=== PATIENT | female | born 1955 | race Caucasian/White ===

== ENCOUNTER → 2017-09-15 | Outpatient (CLI) | payer OTHER, BC ==
[~2017-09-15] MED LIST: ATOR20TA22 PO; CHLO12TA PO; CHOL500045 PO; CYCL-332 PO; DOXY150T6 PO; ESTR2TAB26 PO; FLUO40CA70 PO; HYDR-2966 PO; LEVO100T95 PO; LEVO50TA80 PO; LIOT5TAB12 PO; MELO-149 PO; METR45CR9 TP; METXR500 PO; PHEN10TA PO; POTA-53 PO; SULF-198 PO; VALS1TAB96 PO; ZOLP-350 PO
[2017-09-15 09:57] LABS: PLATELET COUNT, AUTOMATED 333 K/uL (150-450)
--- NOTE | 2017-09-15 10:42 | RADIOLOGY IMAGING REPORT ---
FACILITY: [facility] - [place] PATIENT NAME: Nanci Jack : 1955 MR: [id number] V: [id number] EXAM DATE: ORDERING PHYSICIAN: KRZYSZTOF TINSLEY TECHNOLOGIST: Location: [facility] - [place] Patient: Nanci Jack : 1955 Visit/Account:[id number] Date of Sevice: 09/15/2017 Technique: CHEST PA AND LAT HISTORY: Pneumonia, cough Comparison studies: None FINDINGS: No lobar airspace consolidation. No pleural effusion. The cardiac silhouette is unremarka ble. IMPRESSION: 1. No acute cardiopulmonary process. Report Dictated By: Kush Thomas DO at 09/15/2017 10:36 AM Report E-Signed By: Kush Thomas DO at 09/15/2017 10:38 AM WSN:[id number]
== END ==
LOC: RAD 09:26
PROVIDERS: ATTEND Nurse Practitioner Family
DX: J41.1 Mucopurulent chronic bronchitis (principal)
CPT/HCPCS: 36415; 71046; 82040; 82247; 82310; 82374; 82435; 82565; 82947; 84075; 84132; 84155; 84295; 84450; 84460; 84520; 85025; 85379

== ENCOUNTER → 2018-01-29 | Outpatient (CLI) | payer OTHER, BC ==
--- NOTE | 2018-02-02 10:48 | RADIOLOGY IMAGING REPORT ---
FACILITY: [facility] PATIENT NAME: MOSES JUNG : [id number] MR: [id number] V: [id number] EXAM DATE: [id number] ORDERING PHYSICIAN: KRZYSZTOF TINSLEY TECHNOLOGIST: Komal Yousif PROCEDURE:BILATERAL DIGITAL SCREENING MAMMOGRAM WITH CAD ASSISTED INTERPRETATION & 3D TOMOSYNTHESIS COMPARISON:Prior mammograms 01/04/14, 11/10/12, 11/04/12. INDICATIONS:screening FINDINGS: Moderately dense fibroglandular tissue is seen throughout the breasts. The parenchymal pattern has remained stable allowing for difference in mammographic technique & patient positioning. There is no evidence of malignant appearing mass, malignant appearing calcifications or other secondary sign of malignancy in either breast. DIAGNOSTIC CATEGORY 1--NEGATIVE. RECOMMENDATIONS: ROUTINE MAMMOGRAM AND CLINICAL EVALUATION. IMPRESSION: BIRADS 1: Negative. No significant abnormality is seen. Dictated by: Eli Almendarez M.D. on 02/01/2018 at 17:17 Transcribed by: MELISSA on 02/02/2018 at 7:59 Approved by: Eli Almendarez M.D. on 02/02/2018 at 10:47 [facility]
== END ==
LOC: MAMO 02:09
PROVIDERS: ATTEND Nurse Practitioner Family
DX: Z12.31 Encounter for screening mammogram for malignant neoplasm of breast (principal); E87.6 Hypokalemia
CPT/HCPCS: 36415; 77063; 77067; 82040; 82247; 82310; 82374; 82435; 82565; 82947; 84075; 84132; 84155; 84295; 84450; 84460; 84520

== ENCOUNTER 2018-11-10 13:00 | Outpatient (RCR) | payer MEDICARE, BC ==
--- NOTE | 2018-10-27 18:21 | PT INITIAL EVALUATION ---
MEDICAL DIAGNOSIS: Gluteal tendinitis, left hip (M76.02) TREATMENT DIAGNOSIS: Same, L SI pain, L hip flexor tendinitis DATE OF ONSET: 10/27/17 SUBJECTIVE: Nanci Jack presents to PT for acute on chronic (1 year) L gluteal tendinitis, flared two months ago for unknown reasons. She states her L posterior and lateral hip pain has flared with R anterior hip pain with hip flexion, stair use, ambulation to the point she isn't walking for exercise, uses stairs in a non-reciprocating pattern and abducts her L LE with car transfers. She rates L hip pain with hip flexion as 8/10, 2/10 at rest. REHAB PROBLEM LIST: Increased Pain, Impaired Transfers, Decreased ROM, Strength, Function, Mobility, and Altered Gait PREVIOUS MEDICAL HISTORY: R ADONIS, 2 bladder surgeries, DM rosacea, HTN, hypercholesteremia OCCUPATION: Retired, lives with her in a multi-story home. OBJECTIVE: Posture: L anterior and R posterior ilium, hip flexed 20 degrees, apparent long L LE. ROM: L hip PROM flexion 90 deg., anterior hip pain, abduction 40 deg., extension -5 degrees from neutral, IR 15 deg, ER 30 degrees. Lumbar flexion 75%, extension 50%, facet pain. SI AROM with sluggish l ilium posterior rotation. Strength: L hip abd. 3+/5, pain limited, B obturator internus 3+/5, L hip flexors 3+/5, pain limited. Palpation: Painful L G. medius, G. max tendon, TFL/IT band and greater trochanter (boggy at the trochanter). L anterior hip is painful, especially lesser trochanter. Special Tests: Positive Ye test B. L hip scour, PADMINI 40%, both limited by anterior hip pain. Mobility: Difficulty sit/supine due to L anterior hip pain. Gait: Apparent long L LE, leans R in L stance and L vaulting at mid-stance. ASSESSMENT: Nanci Jack presents with L hip tendinitis, SI dysfunction putting pressure on the L hip flexors, limiting L hip flexion activities. She did well with gentle ilium mobilization and is started with isometric core stabilization exercises. She had less apparent long L LE and no vaulting in gait after session. Short Term Goals One month: Nanci abductors her L hip in car transfers, walks 2-3 blocks with hip pain 2-3/10, uses stairs with a reciprocating gait. Patient's Goals Use stairs normally, walk outdoors, car transfers without a stiff L LE. PLAN: Patient to be seen for Manual Therapy, Strengthening/condition, Ice/Heat, Range of Motion, Spinal Stabilization Stretching, Neuromuscular Re-ed, Electrical Stim, Posture/Body mechanics, Home Exercise Program for 2x/Week for 4 Weeks Thank you for this referral. If you have any questions, comments, or concerns about this report or plan, please contact me at . Ruddy Dennis PA-C date [facility]
--- NOTE | 2018-11-10 15:11 | PT PLAN OF CARE ---
Physician: Dr. Casey Dennis Patient is being seen: 2x/week Therapist: Monserrat Cat, PT Medical Diagnosis: Gluteal tendinitis, left hip (M76.02) Treatment Diagnosis: Same, L SI pain, L hip flexor tendinitis Date of Onset: 10/27/17 Date of Initial Evaluation: 10/27/18 Date patient was last seen: 11/10/18 Number of treatments: 6 Number of cancellations/No shows: 0 INTERVENTIONS: L hip Therapeutic Exercise, , Manual Therapy, Heat, Electrical Stim GOALS: One month: Nanci abducts her L hip in car transfers, walks 2-3 blocks with hip pain 2-3/10, uses stairs with a reciprocating gait. all not met PATIENT'S GOAL: Use stairs normally, walk outdoors, car transfers without a stiff L LE. all not met Patient Compliance: Excellent Prognosis: Excellent Reasons for discontinuing therapy: S: Nanci continues to reports L anterior hip pain 7/10 with stair use, 5/10 with car transfers. She has only tolerated light L hip ROM, isometric exercise. Posture: Even ASIS. ROM: L hip PROM flexion 100 deg., anterior hip pain, abduction 40 deg., extension 15 degrees. Lumbar flexion WNL, extension 50%, facet pain. SI AROM WNL Strength: L hip still 3+/5, pain limited. Palpation: Painful at the L hip flexor, less in the IT band, but muscle relaxation techniques don't alleviate L anterior hip pain. Special Tests: Positive L hip scour, PADMINI 40%, both limited by more severe anterior hip pain. Mobility: Less difficulty sit/supine due to L anterior hip pain. A/P: Nanci Jack isn't progressing with L hip pain relief, especially with hip joint loading. I'll DC PT due to lack of progress. Thank you. DANIELLE
== END 2018-11-10 18:00 | disposition home or self-care (01) ==
LOC: PT 13:00
PROVIDERS: ATTEND Orthopaedic Surgery Adult Reconstructive Orthopaedic Surgery
DX: M76.02 Gluteal tendinitis, left hip (principal); I10 Essential (primary) hypertension; E11.9 Type 2 diabetes mellitus without complications; Z96.641 Presence of right artificial hip joint
CPT/HCPCS: 97010; 97110; 97140; 97162; G0283

== ENCOUNTER → 2019-01-04 | Outpatient (CLI) | payer MEDICARE, BC | LOC: LAB 09:44 | PROVIDERS: ATTEND Orthopaedic Surgery Adult Reconstructive Orthopaedic Surgery | DX: Z01.812 Encounter for preprocedural laboratory examination (principal); M16.12 Unilateral primary osteoarthritis, left hip ==

== ENCOUNTER → 2019-01-04 | Outpatient (CLI) | payer MEDICARE, BC ==
[2019-01-04 10:35] LABS: PLATELET COUNT, AUTOMATED 334 K/uL (150-450)
== END ==
LOC: LAB 09:56
PROVIDERS: ATTEND Nurse Practitioner Family
DX: Z01.812 Encounter for preprocedural laboratory examination (principal); E87.6 Hypokalemia; E87.5 Hyperkalemia; E06.3 Autoimmune thyroiditis; R73.01 Impaired fasting glucose; D51.0 Vitamin B12 deficiency anemia due to intrinsic factor deficiency; E03.9 Hypothyroidism, unspecified; E55.9 Vitamin D deficiency, unspecified; Z86.39 Personal history of other endocrine, nutritional and metabolic disease
CPT/HCPCS: 36415; 82040; 82247; 82306; 82310; 82374; 82435; 82465; 82565; 82607; 82947; 83036; 83718; 84075; 84132; 84155; 84295; 84443; 84450; 84460; 84478; 84520; 85025

== ENCOUNTER → 2019-01-26 | Outpatient (CLI) | payer MEDICARE, BC | LOC: LAB 15:29 | PROVIDERS: ATTEND Nurse Practitioner Family | DX: R79.89 Other specified abnormal findings of blood chemistry (principal) | CPT/HCPCS: 36415; 82565 ==

== ENCOUNTER → 2019-02-04 | Outpatient (CLI) | payer MEDICARE, BC | LOC: LAB 13:16 | PROVIDERS: ATTEND Orthopaedic Surgery Adult Reconstructive Orthopaedic Surgery | DX: Z51.81 Encounter for therapeutic drug level monitoring (principal); Z79.01 Long term (current) use of anticoagulants | CPT/HCPCS: 36415; 82310; 82374; 82435; 82565; 82947; 84132; 84295; 84520 ==